=== PATIENT | male | born 1975 | race African-American/Black ===

== ENCOUNTER 2017-07-30 02:49 | Emergency (ER) | payer OTHER ==
[2017-07-30 03:14] LABS: BASOPHILS 0.4 % (0-2); EOSINOPHILS 6.2 % (0-7); HEMATOCRIT 39.9 % (42.0-54.0); IMMATURE GRANULOCYTES 0.9 % (0-5); LYMPHOCYTES 43.9 % (15-50); MCH 34.4 pg (26.0-34.0); MCHC 35.1 g/dL (31.0-37.0); MEAN PLATELET VOLUME 9.3 fL (7.4-10.4); MONOCYTES 11.2 % (2-11); NEUTROPHILS 37.4 % (40-80); PLATELET COUNT 287 10x3/uL (130-400); RBC 4.07 10x6/uL (4.20-6.10); RDW 12.1 % (11.5-14.5); WBC 5.3 10x3/uL (4.8-10.8)
[2017-07-30 03:38] LABS: ALBUMIN 3.5 g/dL (3.4-5.0); ANION GAP 14.8 mmol/L (8-16); BILIRUBIN - TOTAL 0.34 mg/dL (0.2-1.3); CALCIUM 8.7 mg/dL (8.5-10.1); CARBON DIOXIDE 22.1 mmol/L (21.0-32.0); CREATININE - SERUM 1.3 mg/dL (0.6-1.3); POTASSIUM - SERUM 3.9 mmol/L (3.5-5.1); PROTEIN - SERUM 6.5 g/dL (6.4-8.2)
[2017-07-30 04:00] LABS: APPEARANCE CLEAR (CLEAR); BILIRUBIN NEGATIVE (NEGATIVE); COLOR YELLOW (YELLOW); GLUCOSE NEGATIVE (NEGATIVE); KETONE SMALL mg/dL (NEGATIVE); NITRITE NEGATIVE (NEGATIVE); PROTEIN NEGATIVE (NEGATIVE); UROBILINOGEN NORMAL (NORMAL)
== END 2017-07-30 04:12 | disposition home or self-care (01) ==
LOC: D.ER 02:49
PROVIDERS: Family Medicine
DX: R11.10 Vomiting, unspecified (principal); R19.7 Diarrhea, unspecified

== ENCOUNTER 2018-07-22 08:25 | Emergency (ER) | payer OTHER ==
[~2018-07-22] VITALS: Ht 195.6 cm; Wt 138.6 kg
[2018-07-22 08:40] VITALS: Ht 195.6 cm; Wt 138.6 kg
[2018-07-22] MEDS ORDERED: BP MED PO (10:02)
[2018-07-22] MEDS ORDERED: ALBUTEROL SULF8.5 GM INH (10:19)
[2018-07-22] MEDS ORDERED: VIBRAMYCIN 100100 MG PO (10:19)
[2018-07-22] MEDS ORDERED: PHENERGAN DM SYR5 ML PO (10:19)
[2018-07-22 11:09] VITALS: BP 148/89
== END 2018-07-22 10:42 | disposition home or self-care (01) ==
LOC: D.ER 08:25
DX: J01.90 Acute sinusitis, unspecified (principal); J40 Bronchitis, not specified as acute or chronic; I10 Essential (primary) hypertension

== ENCOUNTER 2018-08-18 11:42 | Emergency (ER) | payer OTHER ==
[~2018-08-18] VITALS: Ht 195.6 cm; Wt 122.7 kg
[~2018-08-18 11:42] MED LIST: ALBUTEROL SULF8.5 GM INH; BP MED PO; PHENERGAN DM SYR5 ML PO; VIBRAMYCIN 100100 MG PO
[2018-08-18 11:48] VITALS: Ht 195.6 cm; Wt 122.7 kg
[2018-08-18] MEDS ORDERED: OMEPRAZOLE20 M1 PO (13:47)
[2018-08-18] MEDS ORDERED: VOLTAREN75 MG PO (13:47)
[2018-08-18] MEDS ORDERED: ZANAFLEX4 MG PO (13:47)
[2018-08-18 13:58] VITALS: BP 125/68
== END 2018-08-18 13:59 | disposition home or self-care (01) ==
LOC: D.ER 11:42
DX: M54.5 Low back pain (principal)